=== PATIENT | male | born 1970 | race Caucasian/White ===

== ENCOUNTER 2019-12-15 17:05 | Emergency (ER) | payer OTHER, SELFPAY ==
[2019-12-15 17:14] VITALS: BP 111/82; PULSE 85; RESP 17; TEMP 37.2; O2SAT 98; BMI 21.7
--- NOTE | 2019-12-15 17:20 | DI.RAD.S_ITS ---
PROCEDURE: XR HAND LT MIN 3V INDICATIONS: table saw accident TECHNIQUE: 3 views of the hand(s) acquired. COMPARISON: None. FINDINGS: Bones: There appears to be a subtle fracture involving the tuft of the distal phalanx of the index finger without intra-articular involvement. No dislocation is evident. No suspicious osseous lesions are evident. Severe degenerative changes of the carpal bones are present with widening of the scapholunate joint and deformity of the scaphoid. Scattered areas of degenerative cystic change throughout the carpal bones are present. An old ulnar styloid process injury is noted. The remainder of the imaged osseous structures of the hand and wrist are otherwise unremarkable. Soft tissues: No suspicious soft tissue calcifications. Soft tissue swelling about the index finger is present. No unexpected radiopaque foreign bodies are appreciated IMPRESSION: 1. Tuft fracture of the distal phalanx of the index finger. 2. No radiopaque foreign bodies. 3. Advanced degenerative changes of the wrist. There may be an old injury of the scaphoid. Scapholunate joint widening is suggestive of prior ligamentous injury. Dictated by: Kvng Baker M.D. on 12/15/2019 at 16:33 Approved by: Kvng Baker M.D. on 12/15/2019 at 16:36
[2019-12-15] MEDS: LIDO 1%/SOD BICARB 8.4% (10ML) 10 ML SYRINGE INJ (20:51)
[2019-12-15] MEDS: BACITRACIN OINT 0.9 GM PCKT 2 APPLIC TOP (20:51)
[2019-12-15] MEDS: ACETAMINOPHEN 325 MG TABLET 650 MG PO (20:51)
[2019-12-15] MEDS: IBUPROFEN 400 MG TABLET PO (20:51)
--- NOTE | 2019-12-15 22:20 | ED_ITS ---
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 Patient reports he was using a table saw to work on a project and the board kicked back and his finger got caught in the table saw. Patient reports has long vertical laceration on index finger with a nail damage and light laceration to 3rd finge r. Patient was initially evaluated at or [facility] and received a tetanus immunization and IM injection of Toradol and the wound was dressed and he was referred to [facility] for further evaluation and treatment. Patient has learned to use left hand as his dominant hand after the accident and amputation. Patient denies other chronic medical condition. Patient states pain is starting to recur. Patient denies upper respiratory infection symptoms and denies contact with positive Covid 19 Related Data Previous Rx's Medication Instructions Recorded cephalexin [Keflex] 500 mg PO QID 7 Days #28 cap 12/15/19 Allergies Allergy/AdvReac Type Severity Reaction Status Date / Time No Known Drug Allergies Allergy Verified 12/15/19 17:20 Review of Systems <ROXANNA Hendricks - Last Filed: 12/16/19 04:21> Review of Systems Narrative: General: Denies fever, chills, fatigue, malaise, sweats. HEENT: Denies sinus pain, ear pain, sore throat, difficulty swallowing, dizziness. Respiratory: Denies dyspnea, cough, wheezing, hemoptysis, sputum. Cardiovascular: Denies chest pain, palpitations, orthopnea, edema. Gastrointestinal: Denies nausea, vomiting, abdominal pain, diarrhea, constipation, melena. : Denies dysuria, frequency, incontinence, hematuria, urinary retention. Musculoskeletal: See HPI Skin: See HPI Neurologic: Denies weakness, headache, numbness, change in speech, confusion, seizures, incoordination. Psychiatric: No concerning psychosocial issues. 12-point review of systems is negative except for those stated above. Patient History <ROXANNA Hendricks - Last Filed: 12/16/19 04:21> Medical History Amputation of right arm (Acute) Surgical History H/O arthroscopic knee surgery (Acute) Social History Smoking Status: Current every day smoker Smoking Status: Current every day smoker tobacco type: cigarettes alcohol intake frequency: holidays/special occasions only Substance Use Type: does not use Exam <ROXANNA Hendricks - Last Filed: 12/16/19 04:21> Narrative Exam Narrative: General appearance: well developed, well nourished, in mild distress from pain. Head: normocephalic, atraumatic, no scalp lesions, non-tender. ENT: Hearing grossly intact. Airway patent. Neck/Thyroid: neck supple, full range of motion, no visible masses or meningeal signs. No JVD, non-tender without lymphadenopathy. Skin: 4.5 cm vertical deep laceration involving distal and intermediate phalanges of left index finger involving nail fractures into three pieces. Left hand 3rd finger with to long superficial laceration without active bleeding. Heart: no clubbing, no cyanosis, no edema. S1 and S2 normal. RRR w/o murmurs, clicks, or bruits. Lungs: Breathing even and unlabored. No stridor. No accessory muscles used. Able to speak in full sentences. Chest: normal shape and expansion. Abdomen: non-obese, non-distended. Neurologic: alert and oriented. Cognitive exam, CROSSCUTTER ROLLED GLASS and PNS grossly intact on informal exam. Psych: good eye contact, normal affect. Initial Vital Signs Initial Vital Signs: Vital Signs Temperature 99.0 F 12/15/19 17:14 Pulse Rate 85 12/15/19 17:14 Respiratory Rate 17 12/15/19 17:14 Blood Pressure 111/82 12/15/19 17:14 Pulse Oximetry 98 12/15/19 17:14 Extrem Left upper extremity: hand Details: abnormal to inspection, neuromotor exam normal, neurosensory exam normal, tendon exam normal, tenderness Location: of the 2nd digit, vascular exam Details: radial pulse present, normal ROM of fingers, laceration (Second digit) and crepitus Location: of the 2nd digit Location: at the distal phalanx <Justine Masters MD - Last Filed: 12/16/19 05:44> Initial Vital Signs Initial Vital Signs: Vital Signs Temperature 99.0 F 12/15/19 17:14 Pulse Rate 85 12/15/19 17:14 Respiratory Rate 17 12/15/19 17:14 Blood Pressure 111/82 12/15/19 17:14 Pulse Oximetry 98 12/15/19 17:14 Procedures <ROXANNA Hendricks - Last Filed: 12/16/19 04:21> Laceration Repair Laceration 1: Site: hand Side (If applicable): left Size (cm): 4.5 Description: linear, irregular and contaminated Depth: simple, single layer Local Anesthetic: lidocaine 1% and with bicarb Amount of anesthesia used (mL): 3 Pre-repair: wound explored, irrigated extensively and wound margins revised Skin layer closed with: nylon Size (cm): 4-0 Number of sutures: 4 (deep vertical) Technique: simple, interrupted Size: 4-0 Number of sutures: 1 Orthopedic Splinting/Casting Injury #1: Side: left Upper Extremity Injury Location: finger (index) Upper Extremity Immobilizer: aluminum form splint Post splinting neuro exam: intact Post splinting vascular exam: intact Placed by: Nursing Scores <ROXANNA Hendricks - Last Filed: 12/16/19 04:21> GCS Dann coma scale eye opening: Spontaneous Dann coma scale verbal response: Orientated Dann coma scale motor response: Obey commands [place] coma scale total score: 15 Course <ROXANNA Hendricks - Last Filed: 12/16/19 04:21> Orders Ordered: Discontinued Medications Acetaminophen (Tylenol) 650 mg PO NOW ONE Stop: 12/15/19 20:20 Last Admin: 12/15/19 20:51 Dose: 650 mg Documented by: SANDRA Hydrocodone Bitart/Acetaminophen (Vicodin 5/325 Prepack) 1 bottle MISC SEEINSTR ONE Stop: 12/15/19 22:33 Last Admin: 12/15/19 22:41 Dose: 1 bottle Documented by: CEASR Bacitracin (Bacitracin) 2 applic TOP NOW ONE Stop: 12/15/19 20:20 Last Admin: 12/15/19 20:51 Dose: 2 applic Documented by: SANDRA Cefazolin Sodium (Keflex 250 Mg Prepack) 1 bottle MISC SEEINSTR ONE Stop: 12/15/19 22:20 Last Admin: 12/15/19 22:28 Dose: 1 bottle Documented by: CESAR Cephalexin HCl (Keflex) 500 mg PO NOW ONE Stop: 12/15/19 22:20 Last Admin: 12/15/19 22:29 Dose: 500 mg Documented by: CESAR Ibuprofen (Advil) 400 mg PO NOW ONE Stop: 12/15/19 20:20 Last Admin: 12/15/19 20:51 Dose: 400 mg Documented by: SANDRA Lidocaine/Sodium Bicarbonate (Buffered Lidocaine 10 Ml Syr) 10 ml INJ NOW ONE Stop: 12/15/19 20:20 Last Admin: 12/15/19 20:51 Dose: 10 ml Documented by: SANDRA Vital Signs Vital signs: Vital Signs - 8 hr 12/15/19 22:46 Pulse Rate 70 Respiratory Rate 18 Blood Pressure 115/78 Pulse Oximetry 99 <Justine Masters MD - Last Filed: 12/16/19 05:44> Orders Ordered: Discontinued Medications Acetaminophen (Tylenol) 650 mg PO NOW ONE Stop: 12/15/19 20:20 Last Admin: 12/15/19 20:51 Dose: 650 mg Documented by: SANDRA Hydrocodone Bitart/Acetaminophen (Vicodin 5/325 Prepack) 1 bottle MISC SEEINSTR ONE Stop: 12/15/19 22:33 Last Admin: 12/15/19 22:41 Dose: 1 bottle Documented by: CESAR Bacitracin (Bacitracin) 2 applic TOP NOW ONE Stop: 12/15/19 20:20 Last Admin: 12/15/19 20:51 Dose: 2 applic Documented by: SANDRA Cefazolin Sodium (Keflex 250 Mg Prepack) 1 bottle MISC SEEINSTR ONE Stop: 12/15/19 22:20 Last Admin: 12/15/19 22:28 Dose: 1 bottle Documented by: CESAR Cephalexin HCl (Keflex) 500 mg PO NOW ONE Stop: 12/15/19 22:20 Last Admin: 12/15/19 22:29 Dose: 500 mg Documented by: CESAR Ibuprofen (Advil) 400 mg PO NOW ONE Stop: 12/15/19 20:20 Last Admin: 12/15/19 20:51 Dose: 400 mg Documented by: SANDRA Lidocaine/Sodium Bicarbonate (Buffered Lidocaine 10 Ml Syr) 10 ml INJ NOW ONE Stop: 12/15/19 20:20 Last Admin: 12/15/19 20:51 Dose: 10 ml Documented by: SANDRA Vital Signs Vital signs: Vital Signs - 8 hr 12/15/19 22:46 Pulse Rate 70 Respiratory Rate 18 Blood Pressure 115/78 Pulse Oximetry 99 MDM - Wound/Laceration <Joon ROXANNA Frias - Last Filed: 12/16/19 04:21> Differential Diagnosis Differential diagnosis: Likely laceration and other (Open fracture) Medical Records Attestation: I reviewed the patient's medical records. Imaging Data XR-Hand LT: Radiologist's Impression: [address] [address] XRay Report Signed Patient: Levy Fernandez FMR#: [id number] : 1970Acct:[id number] Age/Sex: 49 / MDate of Service: 12/15/19 Loc: ED Accession Number: [id number] Procedure: XR hand LT min 3V Ordering Provider: Sumeet Davis MD PROCEDURE: XR HAND LT MIN 3V INDICATIONS: table saw accident TECHNIQUE: 3 views of the hand(s) acquired. COMPARISON: None. FINDINGS: Bones: There appears to be a subtle fracture involving the tuft of the distal phalanx of the index finger without intra-articular involvement. No dislocation is evident. No suspicious osseous lesions are evident. Severe degenerative changes of the carpal bones are present with widening of the scapholunate joint and deformity of the scaphoid. Scattered areas of degenerative cystic change throughout the carpal bones are present. An old ulnar styloid process injury is noted. The remainder of the imaged osseous structures of the hand and wrist are otherwise unremarkable. Soft tissues: No suspicious soft tissue calcifications. Soft tissue swelling about the index finger is present. No unexpected radiopaque foreign bodies are appreciated IMPRESSION: 1. Tuft fracture of the distal phalanx of the index finger. 2. No radiopaque foreign bodies. 3. Advanced degenerative changes of the wrist. There may be an old injury of the scaphoid. Scapholunate joint widening is suggestive of prior ligamentous injury. Dictated by: Kvng Baker M.D. on 12/15/2019 at 16:33 Approved by: Kvng Baker M.D. on 12/15/2019 at 16:36 [facility] Narrative Medical decision making narrative: This is a 49-year-old male who has history of right hand amputation presents to ED with deep laceration on left dorsal index finger involving distal and medial phalange and superficial laceration to 3rd dorsal finger from a table saw at 10:00 a.m.. Tetanus immunization was updated at the clinic before he came into ED. Dr. Masters kindly evaluated the extent of the wound injury at the bedside with myself. X-ray test shows tuft fracture of the distal balance of the index finger without visual radiopaque foreign bodies. The injuries were soaked in Hibiclens water and thoroughly washed out with copious water. Deep laceration was repaired by deep sutures after index finger nail was removed. Please see procedural note. Third finger superficial laceration was cleaned well with wound care with antibiotic medication ointment. Patient was medicated with Tylenol, Motrin, 1st dose Keflex 500 mg while in ED. he was discharged to home with prescription for remaining dose for Keflex 500 mg q.i.d. for 7 day course and prepack [place] for pain management. We discussed narcotic medication precautions and patient also advised to use upon-ffe-[id number] Tylenol and or Motrin as needed for the baseline pain management. Affected finger has been splinted on aluminum finger splint to protect sutures. Patient advised to follow-up with clinic in 2 days for wound recheck. Home wound care teaching was provided. Patient was referred to [facility] orthopedist follow up on his injuries. Return precautions were discussed with patient and patient verbalized understanding and agreement with the treatment plan. Discharge Plan Departure Patient Disposition: Home Clinical Impression: Deep laceration of finger Open fracture of distal phalanx of index finger Qualifiers: Encounter type: initial encounter Fracture alignment: nondisplaced Laterality: left Qualified Code(s): S62.661B - Nondisplaced fracture of distal phalanx of left index finger, initial encounter for open fracture Discharge Date/Time: 12/15/19 22:47 Instructions: DI for Laceration Repair, DI for Open Fracture Activity Restrictions/Additional Instructions: You have been diagnosed with [deep laceration to your left index finger from a table saw involving open tuft fracture. The laceration has been repaired with 4 deep sutures and 1 simple interrupted suture. Nail has been removed. You were medicated with Keflex to prevent infection. Please continue to take Keflex 4 times a day for next 7 days. You can take [place] that has been provided for severe pain. [place] is narcotic pain medications any can cause drowsiness and constipation so please take precautions. Please do not drive, drink alcohol, operate heavy equipments with the taking this medications.]. What to do: *Take your medications as directed. You can take [id number] Tylenol and or Motrin as needed as baseline pain management. Tylenol 650-1000 mg up to 3 to 4 times a day as needed for pain. Ibuprofen 400-600 mg up to 3 times a day as needed for pain with food. You can use cool pack for next couple of days for pain and inflammation. Please use splint to prevent rupturing sutures. Please do not get your wound soaked in the water until suture removal. Keep your dressing intact for next 24 hrs. After then, you could remove your dressing, wash with soap and water. Pat dry with clean paper towel and dress it with antibiotic ointment. You can change dressing as needed and daily. Please monitor for signs and symptoms for infection such as increasing redness, swelling, warmth, pain, fever, purulent discharge. If this occurs, please return to ED or follow up with your primary care physician since your wound may be gotten infected. Please follow up with your primary care provider in 2-3 days for recheck wound. Your suture should be removed [7-10 ] days. This can be done by your primary provider, walk-in clinic or here in ED. Please keep your wound clean, dry and intact all times. *Follow up with your primary care provider in 2-3 days, call for an appointment. Let them know you were seen in the ED and that we asked you to be seen in follow up for wound recheck. Please follow-up with [facility] orthopedist for your fracture and deep laceration on your fingers *Return to ED if you have any new, worsening, or concerning symptoms, such as [chest pain, breathing difficulty, unable to tolerate fluids, fever, purulent discharge, or any acute concerns]. Prescriptions: New cephalexin [Keflex] 500 mg capsule 500 mg PO QID 7 Days Qty: 28 RF: 0 Referrals: [facility] [Provider Group] Levy Lyles MD [Non-Staff] - <Justine Masters MD - Last Filed: 12/16/19 05:44> Cosign ED Attending Cosignature Attestation: I was immediately available in the department for consultation throughout this patient's visit. I agree with documentation as above. Justine Masters MD
[2019-12-15] MEDS: cephALEXin 250 MG PREPACK 1 BOTTLE MISC (22:28)
[2019-12-15] MEDS: cephALEXin 250 MG CAPSULE 500 MG PO (22:29)
[2019-12-15] MEDS: HYDROCODONE/ACET 5/325 PREPACK 1 BOTTLE MISC (22:41)
[2019-12-15 22:46] VITALS: BP 115/78; PULSE 70; RESP 18; O2SAT 99
== END 2019-12-15 22:47 | disposition home or self-care (01) ==
PROVIDERS: Emergency Provider Nurse Practitioner Family
DX: S62.661B Nondisplaced fracture of distal phalanx of left index finger, initial encounter for open fracture (principal); W29.3XXA Contact with powered garden and outdoor hand tools and machinery, initial encounter; Y99.0 Civilian activity done for income or pay
CPT/HCPCS: 12002; 73130; 99283; 99284

== ENCOUNTER → 2020-08-25 11:47 | Outpatient (CLI) | payer OTHER, SELFPAY ==
--- NOTE | 2020-08-25 | DI.MRI.S_ITS ---
PROCEDURE: MR WRIST LT WO CON INDICATIONS: Pain in left wrist TECHNIQUE: Noncontrast coronal proton density fast spin echo and T2 fast spin echo with fat saturation; coronal 3-D gradient echo, axial T1 spin echo and T2 fast spin echo with fat saturation, sagittal T1 spin echo through the wrist. COMPARISON: [facility], CR, XR WRIST 3+ VIEWS LEFT, 08/10/2020, 11:09. FINDINGS: Image quality: Excellent. Bones and cartilage: Osteoarthritic changes are noted throughout wrist joints with diffuse joint space narrowing, extensive marrow edema throughout carpal bones and prominent intraosseous cyst formation in distal scaphoid, proximal capitate, and distal portion of triquetrum and hamate. No discrete fracture line is seen. No evidence of osteonecrosis. Osteoarthritic changes also noted involving distal radius with subchondral sclerosis and cyst formation. There is small to moderate amount of joint effusion within radiocarpal, ulnar carpal and intercarpal joints. Proximal migration of capitate in relation to proximal carpal road is seen. There is suggestion of dorsal intercalated segment instability. Well corticated fragment adjacent to tip of ulnar styloid is seen suggestive of old healed injury. Carpal ligaments: There is widening of scapholunate interval and suggestion of full-thickness rupture of the scapholunate ligament. Lunotriquetral ligament is grossly intact. lunotriquetral ligaments appear intact. In the absence of intra-articular contrast, the extrinsic carpal ligaments are not well identified. On sagittal images, the pisohamate ligament appears intact. Triangular fibrocartilage complex: The triangular fibrocartilage appears intact. The adjacent meniscal homolog appears normal in the absence of intra-articular contrast. The extensor carpi ulnaris tendon is normal in location and morphology. Tendons and soft tissues: The carpal tunnel structures appear normal, including the median nerve. The ulnar nerve appears normal within Guyon's canal. All six extensor tendon compartments demonstrate normal morphology, without pathologic tendon sheath fluid. No soft tissue ganglion cysts. IMPRESSION: 1. 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 Prominent intraosseous cyst formation are noted in multiple carpal bones and distal radius. Erosion secondary to inflammatory arthropathy cannot be excluded. 2. There is full-thickness rupture of scapholunate ligament with widened scapholunate interval and proximal migration of capitate suggestive of early SLAC wrist. There is also suggestion of dorsal intercalated segment instability. 3. Triangular fibrocartilage complex is grossly intact. New line 4. Extensor and flexor tendons are grossly intact. 4. Small to moderate amount of joint effusion and mild soft tissue swelling around wrist joint. Dictated by: Jamshid Jeffers M.D. on 08/25/2020 at 15:45 Approved by: Jamshid Jeffers M.D. on 08/25/2020 at 15:53
== END ==
LOC: MRI 11:48
PROVIDERS: PCP Family Medicine; Referring Provider Orthopaedic Surgery; Visit Provider Orthopaedic Surgery
DX: M25.532 Pain in left wrist (principal); S63.392A Traumatic rupture of other ligament of left wrist, initial encounter; M25.432 Effusion, left wrist
CPT/HCPCS: 73221

== ENCOUNTER → 2020-09-08 09:03 | Outpatient (CLI) | payer OTHER, SELFPAY ==
[2020-09-08 12:21] LABS: COVID19 -Nasal RAPID Negative (Negative)
== END ==
PROVIDERS: PCP Family Medicine; Visit Provider Student in an Organized Health Care Education/Training Program
DX: Z20.822 Contact with and (suspected) exposure to COVID-19 (principal)
CPT/HCPCS: 87635

== ENCOUNTER 2020-09-09 09:03 | Day surgery (SDC) | payer OTHER, SELFPAY ==
[2020-09-09] VITALS (9 sets, daily range): BP systolic 124–140; BP diastolic 80–90; PULSE 8–97; RESP 7–16; TEMP 36.6–37.1; O2SAT 92–97; BMI 22.4
--- NOTE | 2020-09-09 09:40 | PM.PREOP ---
Pre-operative Note COVID-19 COVID-19 status: Negative Result date/Date tested (Pos, Neg/Pending): 09/07/20 Interval Note History & Physical reviewed/Exam performed by Physician: Yes Changes to H&P: No
[2020-09-09] MEDS: CEFAZOLIN 2 GM/100 ML FROZ.PIGGY IV (10:11)
[2020-09-09] MEDS: LACTATED RINGERS 1,000 ML 42 ML IV (10:11)
[2020-09-09] MEDS: BUPIVACAINE 0.25% W/ EPI 30 ML VIAL INJ (10:43)
[2020-09-09] MEDS: METOCLOPRAMIDE 10 MG/2 ML INJ IV (13:01)
[2020-09-09] MEDS: ONDANSETRON 4 MG/2 ML INJ IV (13:01)
--- NOTE | 2020-09-09 13:58 | PM.OP.1 ---
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 Signs of carpal collapse with arthritic changes between the capitate and the lunate. Signs of a [facility] wrist. Quite a bit of diastasis between the scaphoid and the lunate. No sign of any arthritic changes between the lunate and the distal radius. Closure Type: primary Specimen(s): none sent Applied: graft(s) (Autograft bone graft) and implant(s) (TriMed 4 corner fusion plate) Estimated Blood Loss (mL): 5 Blood products transfused: none Tourniquet time (min): 90 Procedure in detail: On date of service, patient was met in the holding area where his operative site was signed and witnessed by the OR staff. The surgery is once again discussed with the patient in remaining questions or concerns he had were answered fully. Patient was taken back to the operating theater and placed on the operating table in a supine position. Great care was taken to ensure that all bony prominences were appropriately padded. A well-padded tourniquet was placed up along the upper extremity. Time-out was performed verifying patient's name, procedure, and operative site. The limb was prepped and draped in the normal sterile fashion. An Esmarch was used to exsanguinate the limb the tourniquet was turned up to 250 mm of mercury. Longitudinal incision was made. The incision was ulnar to the Maricruz's tubercle. It was centered over the radiocarpal joint. Fifteen blade was used to incise through skin and fascial tissue. Sharp dissection was continued with a 15 blade until the extensor mechanism was identified. Branches of the superficial radial nerve were identified and protected as well as branches coming off ulnarly. Once we had the extensor mechanism identified and was split allowing a release of the EPL tendon. This was also done ulnarly opening up 4th extensor compartment and then done radially opening up the 2nd extensor compartment. This allowed us to retract the extensor tendons. We next took a small strip of tendon tissue from the ECR be which was then whip stitched and then set aside to be used later. Next, the radiocarpal joint was opened Given his good visualization of the carpus. Findings listed above. Using an osteotome, scaphoid was split and then removed into 2 large pieces. Her insurance scaphoid was then used to remove the tip of the radial styloid to perform a radial styloidectomy. The interval between the lunate in the triquetrum was opened as well as the interval between the capitate and the hamate. The lunate was reduced in a more anatomic position and pinned to the radius. Next a bur was then used to remove any remaining cartilage or sclerotic bone getting down to good healthy bleeding bone. This was done for the articulation between the lunate and the capitate as well as the triquetrum and the hamate. This was also done between the hamate and the capitate as well as between the lunate and the triquetrum. Copious irrigation was performed throughout burring. Once we felt we had good exposed bony tissue, the 4 bones were pinned together for provisional fixation of our 4 corner fusion. Next a Reamer was then used to ream out a circular space for the plate. This provided us good bony graft after the reaming. This was saved for later use. The 18 mm plate was placed and held provisionally with K-wires. Reduction of the 4 carpal bones as well as plate placement was identified on C-arm. Once we were satisfied with the overall reduction and position of the plate, the holes were drilled and locking screws were placed. All the holes were used providing at least 2 screws in to each of the 4 bones. Final K-wire was removed and the wrist was taken through range of motion. No sign of any motion between the 4 bones. Signs of good solid fixation of the 4 corner fusion. Next, the area was copiously irrigated before placing of the bone graft. the previous bone graft was then packed into the different intervals as well as on top of the plate. The dorsal capsule was repaired back into place using 2 0 Ethibond. The extensor retinaculum was then repaired with 3-0 Vicryl recreating the 2nd 3rd 4th and 5th compartments. The skin was then closed with nylon. The hand was cleaned, dried, and dressed. Final C-arm views were obtained. Patient was placed into a splint and taken to the PACU in stable condition. Complications: none Post-operative Condition: stable Disposition: PACU Plan for aftercare: Patient be immobilized for 6 weeks. After 6 weeks patient will come out of the cast to be placed into a removable brace.
== END 2020-09-09 14:28 | disposition home or self-care (01) ==
PROVIDERS: PCP Family Medicine; Referring Provider Orthopaedic Surgery; Visit Provider Orthopaedic Surgery
PROC: (CPT 25825; principal; 2020-09-09 10:45)
DX: M19.132 Post-traumatic osteoarthritis, left wrist (principal); F17.210 Nicotine dependence, cigarettes, uncomplicated
CPT/HCPCS: 25825; J0690; J1100; J2250; J2405; J2704; J2765; J3010

== ENCOUNTER 2023-08-04 23:02 | Emergency (ER) | payer OTHER, SELFPAY ==
[2023-08-04 23:09] VITALS: BP 135/86; PULSE 100; RESP 18; TEMP 36.9; O2SAT 94; BMI 22.4
--- NOTE | 2023-08-04 23:22 | DI.RAD.S_ITS ---
PROCEDURE: XR RIBS RT MIN 3V W CXR 1V INDICATIONS: fall across ladder, R upper rib pain near axilla TECHNIQUE: 2 views of the ribs were acquired, along with a single view chest. COMPARISON: None. FINDINGS: Surgical changes and devices: None. Bones and chest wall: No fractures or dislocations. No suspicious bony lesions. Overlying soft tissues appear unremarkable. Lungs and pleura: No pleural effusions or pneumothorax. Lungs appear clear. Mediastinum: Mediastinal contours appear normal. Heart size is normal. IMPRESSION: No displaced rib fracture or pneumothorax. Dictated by: Rd Guadarrama M.D. on 08/04/2023 at 23:47 Approved by: Rd Guadarrama M.D. on 08/04/2023 at 23:48
--- NOTE | 2023-08-04 23:42 | ED_ITS ---
HPI - Fall General Chief Complaint: Fall Stated Complaint: rib pain, sob, cough Time Seen by Provider: 08/04/23 23:11 Source: patient Mode of arrival: Ambulatory History of Present Illness HPI Narrative: 53-year-old male presents for evaluation of right rib pain. Three days ago patient was on a ladder, the ladder slipped and he fell sideways several feet, striking his ribcage against the ladder. He denies hitting his head, loss of consciousness, any other injuries. Patient has been taking ibuprofen at home for symptoms without significant relief. He is reporting that it was very hard to breathe and even clear his throat and cough due to the pain. 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 Surgical History H/O eye surgery H/O arthroscopic knee surgery Social History household members: none Smoking Status: Current every day smoker alcohol intake: current Smoking Status: Current every day smoker tobacco type: cigarettes alcohol intake frequency: holidays/special occasions only Substance Use Type: marijuana Exam Initial Vital Signs Initial Vital Signs: Vital Signs Temperature 98.4 F 08/04/23 23:09 Pulse Rate 100 H 08/04/23 23:09 Respiratory Rate 18 08/04/23 23:09 Blood Pressure 135/86 08/04/23 23:09 Pulse Oximetry 94 08/04/23 23:09 Oxygen Delivery Method Room Air 08/04/23 23:09 Const: Awake, alert, in pain Chest: No crepitus, no subcutaneous air, no deformity, no bruising Cardiac: regular rate, regular rhythm RESP: unlabored, clear bilaterally, no wheezing Skin: Warm, Dry, intact, no rashes Neuro: AO x3, CN II-XII grossly intact, moves all extremities Course Orders Ordered: ED Orders 08/04/23 23:22 XR ribs RT min 3V w CXR1V Stat Vital Signs Vital signs: Vital Signs - 8 hr 08/04/23 23:09 Temperature 98.4 F Pulse Rate 100 H Respiratory Rate 18 Blood Pressure 135/86 Pulse Oximetry 94 Oxygen Delivery Method Room Air MDM - Fall Differential Diagnosis Differential diagnosis: Likely syncope, dislocation of shoulder region and fracture of wrist Imaging Data Chest x-ray: Radiologist's Impression: PROCEDURE: XR RIBS RT MIN 3V W CXR 1V INDICATIONS: fall across ladder, R upper rib pain near axilla TECHNIQUE: 2 views of the ribs were acquired, along with a single view chest. COMPARISON: None. FINDINGS: Surgical changes and devices: None. Bones and chest wall: No fractures or dislocations. No suspicious bony lesions. Overlying soft tissues appear unremarkable. Lungs and pleura: No pleural effusions or pneumothorax. Lungs appear clear. Mediastinum: Mediastinal contours appear normal. Heart size is normal. IMPRESSION: No displaced rib fracture or pneumothorax. Dictated by: Rd Guadarrama M.D. on 08/04/2023 at 23:47 Approved by: Rd Guadarrama M.D. on 08/04/2023 at 23:48 [facility] Narrative Medical decision making narrative: Patient presenting for evaluation of chest wall pain after falling several days ago. No obvious physical exam abnormalities. Patient reports shortness of breath secondary to pain from deep breathing. X-ray series shows no acute fracture, subcutaneous air, pneumothorax. Patient given prescription for pain medications, counseled to continue to take deep breaths to avoid atelectasis and subsequent pneumonia. L & I paperwork filled out. Discharge Plan Departure Patient Disposition: Home Clinical Impression: Contusion of rib on right side Qualifiers: Encounter type: initial encounter Qualified Code(s): S20.211A - Contusion of right front wall of thorax, initial encounter Instructions: DI for Rib Contusion Activity Restrictions/Additional Instructions: Keep taking Motrin, you may also add Tylenol for pain control. The pain medication prescribed as have Tylenol in it, be sure to take less than 4000 mg total of Tylenol per day. The medication prescribed may cause constipation, take with a stool softener to prevent constipation. Do not take these medicines with drinking alcohol or while operating heavy machinery. Prescriptions: New hydrocodone-acetaminophen 5-325 mg tablet 1 tab PO Q8H PRN (Reason: pain) Qty: 12 0RF No Action oxycodone-acetaminophen [Percocet] 5-325 mg tablet 2 tab PO Q4-6H PRN (Reason: pain) Qty: 60 0RF hydroxyzine pamoate [Vistaril] 25 mg capsule 25 mg PO TID-QID PRN (Reason: spasms) Qty: 60 0RF Referrals: Miscellaneous,Doctor, MD [Primary Care Provider] - Stand Alone Forms: Patient Portal/API
== END 2023-08-05 00:28 | disposition home or self-care (01) ==
PROVIDERS: Emergency Provider Emergency Medicine
DX: S20.211A Contusion of right front wall of thorax, initial encounter (principal); W11.XXXA Fall on and from ladder, initial encounter
CPT/HCPCS: 71101; 99281; 99283

== ENCOUNTER → 2024-04-17 11:03 | Outpatient (CLI) | payer OTHER, SELFPAY ==
[2024-04-17 19:00] LABS: Add Manual Diff / Slide Review NO; Basophils Absolute Auto 0 /uL (0-100); Basophils Percent Auto 0.3 % (0-2); Eosinophils Absolute Auto 200 /uL (0-450); Eosinophils Percent Auto 2.1 % (2-4); Hematocrit 44.5 % (41-53); Lymphocytes Absolute Auto 3000 /uL (1100-4500); Lymphocytes Percent Auto 39.1 % (25-40); Mean Corpuscular HGB Conc 33.8 % (30-36); Mean Corpuscular Hemoglobin 30.3 PG (26-34); Mean Corpuscular Volume 89.5 fL (80-100); Monocytes Absolute Auto 700 /uL (0-900); Monocytes Percent Auto 9.7 % (3-14); Neutrophils Absolute Auto 3700 /uL (1500-7000); Neutrophils Percent Auto 48.8 % (50-75); Platelet Count 211 X10^3/uL (150-400); Red Blood Cell Count 4.97 X10^6/uL (4.5-5.9); Red Cell Distribution Width 13.9 % (11.6-14.8); White Blood Cell Count 7.6 X10^3/uL (4.5-11.0)
[2024-04-17 19:12] LABS: Alanine Aminotransferase 28 IU/L (<50); Albumin 4.2 g/dL (3.5-5.0); Albumin Globulin Ratio 1.6 (1.0-2.8); Alkaline Phosphatase 97 U/L (38-126); Aspartate Aminotransferase 31 IU/L (17-59); BUN Creatinine Ratio 22.3 (6-22); Bilirubin Total 1.2 mg/dL (0.2-1.3); Blood Urea Nitrogen 21 mg/dL (9-20); Calcium 9.4 mg/dL (8.4-10.2); Carbon Dioxide 30 mmol/L (22-32); Chloride 102 mmol/L (98-107); Cholesterol 206 mg/dL (140-199); Estimated Glomerular Filt Rate > 60 mL/min (>60); Globulin 2.6 g/dL (1.7-4.1); Glucose 87 mg/dL (70-100); HDL Cholesterol 59 mg/dL (40-60); HEMOLYSIS < 15 (0-50); LDL Cholesterol Calculated 129 mg/dL (<100); Potassium 4.7 mmol/L (3.4-5.1); Sodium 139 mmol/L (137-145); Total Protein 6.8 g/dL (6.3-8.2); Triglycerides 90 mg/dL (35-150)
[2024-04-17 20:08] LABS: Hep C Virus Ab w/Reflex Quant NEGATIVE s/c (NEGATIVE)
== END ==
PROVIDERS: Visit Provider Physician Assistant
DX: Z12.11 Encounter for screening for malignant neoplasm of colon (principal); Z11.59 Encounter for screening for other viral diseases; Z13.1 Encounter for screening for diabetes mellitus; R35.0 Frequency of micturition; L03.113 Cellulitis of right upper limb; Z12.5 Encounter for screening for malignant neoplasm of prostate; S58.1 Traumatic amputation at level between elbow and wrist; L08.9 Local infection of the skin and subcutaneous tissue, unspecified
CPT/HCPCS: 80053; 80061; 85025; 86803; G0103

== ENCOUNTER 2024-08-12 13:10 | Day surgery (SDC) | payer OTHER, SELFPAY ==
[2024-08-12] MEDS: LACTATED RINGERS 1,000 ML 42 ML IV (13:31)
[2024-08-12 13:36] VITALS: BP 142/83; PULSE 96; RESP 17; TEMP 36.3; O2SAT 99
--- NOTE | 2024-08-12 14:03 | P.HP_ITS ---
History of Present Illness History of Present Illness Date Patient Seen: 08/12/24 Time Patient Seen: 14:03 Chief complaint: Colonoscopy Narrative: 54-year-old white male presents for initial screening colonoscopy. No family history. No changes in bowel habits. 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 Smoking Status: Former smoker Tobacco: How many years used: 40 alcohol intake: current caffeine: Yes Meds Home Medications and Allergies Home Medications Medication Instructions Recorded Confirmed Type Myoelectric Prosthesis with a #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 04/22/24 07/10/24 Rx Psyonic Hand Allergies Allergy/AdvReac Type Severity Reaction Status Date / Time No Known Drug Allergies Allergy Verified 08/12/24 13:29 Review of Systems Review of Systems ROS: Yes All systems reviewed with the patient and are negative except as otherwise documented Exam Vital Signs (past 8 hours): - 08/12/24 13:36 Temperature 97.3 F L Pulse Rate 96 H Respiratory Rate 17 Blood Pressure 142/83 H Pulse Oximetry 99 Oxygen Delivery Method Room Air Oxygen Delivery Method Room Air Narrative Exam Narrative: Gen: NAD, sitting comfortably in bed, appears well HEENT: Sclera are anicteric, head is normocephalic and atraumatic, trachea is midline. CV: RRR, no JVD Resp: clear to auscultation bilaterally, equal chest wall movement bilaterally Abd: soft, nontender, normoactive bowel sounds Ext: no edema, full range of motion Neuro: Cranial nerves II-XII grossly intact, no focal deficits Skin: No erythema or ecchymosis Assessment & Plan Assessment and plan (1) Colon cancer screening: Status: Acute Assessment & Plan narrative: Patient presents for colonoscopy Risks, benefits, alternatives to colonoscopy explained, including but not limited to bowel perforation or other serious complication requiring surgery at less than 1 in 5000 colonoscopies, abdominal pain, cramping or bleeding and less than 1% of colonoscopies, and the chances that we find a diagnosis that would require further intervention of about 2%. Patient agrees to proceed. Time-Based Coding :: [TOTAL MINUTES] spent with patient and on the chart (including review of chart, obtaining history, exam, reviewing outside data, placing orders, documenting exam and treatment plan, and counseling patient) on [DATE]. [employer] Medical Customer Service Representative Document charge(s): No
--- NOTE | 2024-08-12 14:25 | P.OP.COLON_ITS ---
Operative Date/Time/Diagnoses Date of procedure: 08/12/24 Time of procedure: 14:25 Pre-op diagnosis: Colon screening Post-op diagnosis: same Procedure & Clinicians Study performed: Colonoscopy Same procedure as scheduled: Yes Indications: Colon screening Surgeon: Viktor Jacome Procedure Notes SCOAP/Timeout: Performed Procedure in detail: Time-out was performed. Mac was induced. Patient was placed in left lateral d ecubitus position. The perineum was inspected without any gross abnormality. Lubricated pediatric colonoscope was inserted and advanced to the cecum. The terminal ileum was intubated. The colonoscope was withdrawn slowly inspecting the circumference of the colon. Sigmoid diverticulosis was noted. Very small polyps may have been missed, prep quality was adequate. Retroflexed view of the rectum showed small, non prolapsed nonbleeding internal hemorrhoids. The scope was withdrawn the patient was taken to PACU in good condition. Scope withdrawal time: 6 Findings: divertiulosis and internal hemorrhoids Specimen(s): none sent Complications: none Impression: Sigmoid diverticulosis Post-procedure Recommendations: Colonoscopy in 10 years and High fiber diet Follow up: as needed Disposition: PACU
[2024-08-12 14:27] VITALS: BP 110/72; PULSE 89; RESP 14; TEMP 37.1; O2SAT 98
[2024-08-12 14:32] VITALS: BP 108/73; PULSE 86; RESP 14; TEMP 37.1; O2SAT 98
[2024-08-12 14:50] VITALS: BP 106/74; PULSE 84; RESP 14; TEMP 37.1; O2SAT 99
== END 2024-08-12 15:04 | disposition home or self-care (01) ==
PROVIDERS: PCP Physician Assistant; Referring Provider Surgery; Visit Provider Surgery
PROC: 0DJD8ZZ Inspection of Lower Intestinal Tract, Via Natural or Artificial Opening Endoscopic (ICD-10-PCS; CPT 45378; principal; 2024-08-12 14:00)
DX: Z12.11 Encounter for screening for malignant neoplasm of colon (principal); K57.30 Diverticulosis of large intestine without perforation or abscess without bleeding; K64.8 Other hemorrhoids
CPT/HCPCS: 45378; J2704